=== PATIENT | female | born 1945 | race Caucasian/White ===

== ENCOUNTER → 2017-11-11 | Outpatient (CLI) | payer MEDICARE, BC ==
[~2017-11-11] MED LIST: LEVO25TA56 PO; LOR5/325 PO; PER PO; SPIRONOLACTONE; THYROID; ZOCOR
--- NOTE | 2017-11-11 16:18 | RADIOLOGY IMAGING REPORT ---
[place] [facility] [place] NAME: JANET URENA : [id number] MR: [id number] V: [id number] EXAM DATE: ORDERING PHYSICIAN: MIKAEL STACK TECHNOLOGIST: June Kan PROCEDURE:BILATERAL DIGITAL SCREENING MAMMOGRAM WITH CAD ASSISTED INTERPRETATION & 3D TOMOSYNTHESIS COMPARISON:Prior mammograms 10/20/16, 10/16/15 INDICATIONS:screening FINDINGS: Scattered fibroglandular tissue. Round clustered microcalcifications in the Left anterior outer breast are more conspicuous but otherwise unchanged. No significant mass, microcalcifications or architectural distortion. IMPRESSION: BIRADS 1: Normal exam. Annual mammographic screening recommended. Dictated by: Alec Anne on 11/11/2017 at 10:29 Transcribed by: HAO on 11/11/2017 at 11:21 Approved by: Alec Anne on 11/11/2017 at 16:17 [facility]
== END ==
LOC: MAMO 03:03
PROVIDERS: ATTEND Family Medicine
DX: Z12.31 Encounter for screening mammogram for malignant neoplasm of breast (principal); R92.1 Mammographic calcification found on diagnostic imaging of breast
CPT/HCPCS: 77063; 77067

== ENCOUNTER → 2017-11-24 | Outpatient (CLI) | payer MEDICARE, BC ==
--- NOTE | 2017-11-24 09:16 | RADIOLOGY IMAGING REPORT ---
FACILITY: [facility] - [place] PATIENT NAME: William Barker : 1945 MR: [id number] V: [id number] EXAM DATE: ORDERING PHYSICIAN: MIKAEL STACK TECHNOLOGIST: Location: [facility] Patient: William Barker : 1945 Visit/Account:[id number] Date of Sevice: 11/24/2017 THORACIC SPINE 3 VIEWS HISTORY: Back pain COMPARISON: None FINDINGS: 3 views of the thoracic spine were obtained. The visualized vertebral bodies exhibit normal height without spondylolisthesis. Multilevel mild-mod erate degenerative disc disease with lateralizing osteophytes. Mild dextroscoliosis at the midthoraci c spine. Right upper quadrant abdominal surgical clips. IMPRESSION: 1. Multilevel mild-moderate degenerative disc disease. 2. Mild dextroscoliosis. Report Dictated By: Sixto Eugene MD at 11/24/2017 9:10 AM Report E-Signed By: Sixto Eugene MD at 11/24/2017 9:11 AM WSN:[email or web address]
== END ==
LOC: RAD 07:55
PROVIDERS: ATTEND Family Medicine
DX: M47.894 Other spondylosis, thoracic region (principal); M41.86 Other forms of scoliosis, lumbar region
CPT/HCPCS: 72072

== ENCOUNTER → 2017-12-17 | Outpatient (CLI) | payer MEDICARE, BC ==
--- NOTE | 2017-12-17 10:15 | RADIOLOGY IMAGING REPORT ---
FACILITY: [facility] PATIENT NAME: William Barker : 1945 MR: [id number] V: [id number] EXAM DATE: ORDERING PHYSICIAN: MIKAEL STACK TECHNOLOGIST: Location: [facility] Patient: William Barker : 1945 Visit/Account:[id number] Date of Sevice: 12/17/2017 Exam type: HIP RIGHT History: Chronic right hip pain, no known injury Comparison: None. Findings: There are moderate degenerative changes involving the right hip joint with marginal osteophytes most prominent along the inferior aspect right acetabulum and multiple joint space narrowing. There is no evidence of acute fracture dislocation. Mild generative change left hip joint. Moderate joint contreras ges of the visualized lower lumbar spine. IMPRESSION: 1. Moderate degenerative changes of the right hip joint as described above Report Dictated By: Esha Fairchild MD at 12/17/2017 9:56 AM Report E-Signed By: Esha Fairchild MD at 12/17/2017 10:12 AM WSN:[email or web address]
== END ==
LOC: RAD 09:11
PROVIDERS: ATTEND Family Medicine
DX: M16.11 Unilateral primary osteoarthritis, right hip (principal)

== ENCOUNTER 2018-02-10 00:59 | Day surgery (SDC) | payer MEDICARE, BC ==
[~2018-02-10] VITALS: Ht 167.6 cm; Wt 67.1 kg
[~2018-02-10 00:59] MED LIST changes: +ASPI-1471 PO
[2018-02-10] MEDS ORDERED: LIDOCAINE MPF 1% 5 ML VIAL ONE (08:22)
[2018-02-10] MEDS ORDERED: PROPOFOL EMUL(*) 10MG/ML 20 ML 40 ML ONE (08:22)
[2018-02-10 09:27] VITALS: BP 104/70
[2018-02-10] MEDS ORDERED: NORMOSOL R SOLN(*) 1000 ML BAG 1,000 ML IV PRN (10:00)
[2018-02-10] MEDS ORDERED: LIDOCAINE/SOD BICARB 8.4% SYR ID ONE (10:00)
[2018-02-10 11:03] VITALS: BP 75/45
[2018-02-10 11:37] VITALS: BP 103/53
[2018-02-10 12:00] VITALS: BP 106/61
[2018-02-10 12:15] VITALS: BP 97/57
[2018-02-10 12:17] VITALS: BP 97/74
== END 2018-02-10 12:45 | disposition home or self-care (01) ==
LOC: OR 00:59
PROVIDERS: ATTEND Family Medicine
DX: Z12.11 Encounter for screening for malignant neoplasm of colon (principal); Z80.0 Family history of malignant neoplasm of digestive organs; E03.9 Hypothyroidism, unspecified
CPT/HCPCS: 00812; G0121; J2001; J2704

== ENCOUNTER → 2018-12-01 | Outpatient (CLI) | payer MEDICARE, BC ==
--- NOTE | 2018-12-02 09:14 | RADIOLOGY IMAGING REPORT ---
FACILITY: [facility] PATIENT NAME: JANET URENA : [id number] MR: [id number] V: [id number] EXAM DATE: [id number] ORDERING PHYSICIAN: MIKAEL STACK TECHNOLOGIST: June Kan PROCEDURE:BILATERAL DIGITAL SCREENING MAMMOGRAM WITH CAD ASSISTED INTERPRETATION & 3D TOMOSYNTHESIS COMPARISON:Prior mammograms dated 11/11/17, 10/20/16, 10/16/15, 10/11/14, 10/10/12, 10/27/12 INDICATIONS:screening FINDINGS: The breasts are almost entirely fatty. The parenchymal pattern has remained stable when allowing for difference in mammographic technique & patient positioning. DIAGNOSTIC CATEGORY 1--NEGATIVE. RECOMMENDATIONS: ROUTINE MAMMOGRAM AND CLINICAL EVALUATION. IMPRESSION: BIRADS 1: Negative. No significant abnormality is seen. Dictated by: Esha Fairchild M.D. on 12/01/2018 at 16:45 Transcribed by: ANGE on 12/02/2018 at 8:22 Approved by: Esha Fairchild M.D. on 12/02/2018 at 9:13 [facility]
== END ==
LOC: MAMO 00:56
PROVIDERS: ATTEND Family Medicine
DX: Z12.31 Encounter for screening mammogram for malignant neoplasm of breast (principal)
CPT/HCPCS: 77063; 77067